=== PATIENT | female | born 1955 | race Caucasian/White ===

== ENCOUNTER 2018-05-25 11:43 | Emergency (ER) | payer OTHER ==
[~2018-05-25 11:43] MED LIST: AMMO385C4 TP; ASCO10007 PO; BACL20TA PO; DICL100G16 TP; ERGO400C PO; FLUC100IVB PO; FURO20TA4 PO; IBUP-2076 PO; INSLAN SQ; INSU10VI3 SQ; LEVO125T11 PO; METO-408 PO; MULT-1258 PO; NITR100C PO; ONDA4TAB10 PO; PARO40TA72 PO; POTA-81 PO; PREG50 PO
[2018-05-25 13:14] LABS: CREATININE 1.6 mg/dL (0.5-1.5); POTASSIUM 4.1 mmol/L (3.5-5.1)
[2018-05-25 13:15] LABS: APPEARANCE,URINE Cloudy (CLEAR); BILIRUBIN,URINE Negative (NEGATIVE); COLOR,URINE Yellow (YELLOW); GLUCOSE, URINE (UA) Negative (NEGATIVE); KETONES,URINE Negative (NEGATIVE); LEUKOCYTE ESTERASE ,URINE Large (NEGATIVE); NITRATE,URINE Negative (NEGATIVE); OCCULT BLOOD,URINE Moderate (NEGATIVE); PROTEIN,URINE POS 2+ (NEGATIVE)
[2018-05-25 13:19] LABS: ALBUMIN 2.9 g/dL (3.5-5.0); BILIRUBIN,TOTAL 0.3 mg/dL (0.2-1.0); TOTAL PROTEIN, SERUM 7.4 g/dL (6.0-8.3)
[2018-05-25 13:20] LABS: BASOPHILS % (AUTO) 0.2 % (0.0-5.0); EOSINOPHILS % (AUTO) 2.4 % (0.0-8.0); HEMATOCRIT 37.2 % (36-48); LYMPHOCYTES % (AUTO) 7.6 % (21.0-51.0); MEAN CORPUSCULAR HEMOGLOBIN 26.1 pg (27.0-33.0); MEAN CORPUSCULAR HGB CONC 31.9 g/dL (32.0-36.0); MEAN CORPUSCULAR VOLUME 81.9 fL (79-99); MONOCYTES % (AUTO) 11.2 % (3.0-13.0); NEUTROPHILS % (AUTO) 78.6 % (40.0-77.0); PLATELET COUNT (AUTO) 192 K/uL (130-400); RED BLOOD CELL COUNT(AUTO) 4.55 MIL/uL (4.00-5.50); RED CELL DISTRIBUTION WIDTH 17.1 % (11.0-15.5); WHITE BLOOD COUNT (AUTO) 8.3 K/uL (4.8-10.8)
[2018-05-25 13:26] LABS: BACTERIA,URINE Many /HPF (None Seen); SQUAMOUS EPITHELIAL CELL,UR Moderate /HPF (0-2); TRANSITIONAL EPI CELLS,URINE Few /HPF (None Seen)
[2018-05-25] MEDS ORDERED: SODIUM CHLORIDE 0.9% 50 ML IV ONE (16:16)
[2018-05-25] MEDS ORDERED: CEFTRIAXONE SODIUM 1 GM ONE ×2 (16:16→16:20)
[2018-05-25] MEDS ORDERED: LIDOCAINE HCL-MPF 1% 2ML VIAL ONE (16:21)
== END 2018-05-25 17:02 | disposition home or self-care (01) ==
LOC: EDH 11:43
DX: L03.115 Cellulitis of right lower limb (principal); N39.0 Urinary tract infection, site not specified; R60.0 Localized edema; F32.9 Major depressive disorder, single episode, unspecified; E11.9 Type 2 diabetes mellitus without complications; E03.9 Hypothyroidism, unspecified; Z98.890 Other specified postprocedural states; Z88.8 Allergy status to other drugs, medicaments and biological substances
CPT/HCPCS: 36415; 80053; 81001; 85025; 93971; 96372; 99285; J0696 ×2; J3490

== ENCOUNTER 2018-08-01 18:38 | Emergency (ER) | payer OTHER ==
[2018-08-01] MEDS ORDERED: ONDANSETRON HCL 4 MG/2 ML VIAL ONE (20:10)
[2018-08-01] MEDS ORDERED: SODIUM CHLORIDE 0.9% 1000ML 1,000 ML IV ONE (20:10)
[2018-08-01 20:12] LABS: BASOPHILS % (AUTO) 0.5 % (0.0-5.0); EOSINOPHILS % (AUTO) 1.1 % (0.0-8.0); LYMPHOCYTES % (AUTO) 7.7 % (21.0-51.0); MEAN CORPUSCULAR HEMOGLOBIN 24.8 pg (27.0-33.0); MEAN CORPUSCULAR HGB CONC 31.2 g/dL (32.0-36.0); MEAN CORPUSCULAR VOLUME 79.4 fL (79-99); MONOCYTES % (AUTO) 3.4 % (3.0-13.0); NEUTROPHILS % (AUTO) 87.3 % (40.0-77.0); PLATELET COUNT (AUTO) 242 K/uL (130-400); RED BLOOD CELL COUNT(AUTO) 4.91 MIL/uL (4.00-5.50); WHITE BLOOD COUNT (AUTO) 10.2 K/uL (4.8-10.8)
[2018-08-01 20:26] LABS: CREATININE 1.4 mg/dL (0.5-1.5); POTASSIUM 4.7 mmol/L (3.5-5.1)
[2018-08-01 20:34] LABS: ALBUMIN 3.3 g/dL (3.5-5.0); BILIRUBIN,TOTAL 0.3 mg/dL (0.2-1.0); TOTAL PROTEIN, SERUM 7.5 g/dL (6.0-8.3)
[2018-08-04] MEDS ORDERED: BACL20TA PO (02:18)
[2018-08-04] MEDS ORDERED: ASCO10007 PO (02:18)
[2018-08-04] MEDS ORDERED: PANT40TA25 PO (02:18)
[2018-08-04] MEDS ORDERED: LORA10TA7 PO (02:18)
[2018-08-04] MEDS ORDERED: ATOR40TA69 PO (02:18)
[2018-08-04] MEDS ORDERED: TICA90TA PO (02:18)
[2018-08-04] MEDS ORDERED: ASPI-1197 PO (02:18)
[2018-08-04] MEDS ORDERED: TRAM50TA4 PO (02:18)
[2018-08-04] MEDS ORDERED: MULT-1296 PO (02:18)
[2018-08-04] MEDS ORDERED: METO25TA3 PO (02:18)
[2018-08-04] MEDS ORDERED: CHOL500050 PO (02:18)
[2018-08-04] MEDS ORDERED: PARO40TA PO (02:18)
[2018-08-04] MEDS ORDERED: PREG50 PO (02:18)
== END 2018-08-01 23:23 | disposition home or self-care (01) ==
LOC: EDH 18:38
DX: K52.9 Noninfective gastroenteritis and colitis, unspecified (principal); M79.672 Pain in left foot; E11.9 Type 2 diabetes mellitus without complications; F32.9 Major depressive disorder, single episode, unspecified; E03.9 Hypothyroidism, unspecified; Z96.659 Presence of unspecified artificial knee joint; Z98.890 Other specified postprocedural states
CPT/HCPCS: 36415; 73630; 80053; 83690; 84484; 85025; 93005; 96361; 96374; 99284; J2405; J7030

== ENCOUNTER 2021-07-06 08:01 | Day surgery (SDC) | payer OTHER ==
[~2021-07-06 08:01] MED LIST changes: -AMMO385C4 TP; +ASCO100031 PO; -ASCO10007 PO; +ASPI-1197 PO; +ATOR40TA69 PO; +CHOL500050 PO; -DICL100G16 TP; -ERGO400C PO; -FLUC100IVB PO; -FURO20TA4 PO; -IBUP-2076 PO; +LORA10TA7 PO; -METO-408 PO; +METO25TA3 PO; -MULT-1258 PO; +MULT-1296 PO; -NITR100C PO; -ONDA4TAB10 PO; +PANT40TA54 PO; +PARO40TA PO; -PARO40TA72 PO; -POTA-81 PO; +TICA90TA PO; +TRAM50TA4 PO
[2021-07-06] MEDS ORDERED: LIDOCAINE HCL 1% MDV 50ML VIAL ONE (09:14)
[2021-07-06] MEDS ORDERED: HEPARIN 1,000 UNIT VIAL ONE (09:14)
[2021-07-06 10:45] VITALS: BP 129/59
== END 2021-07-06 11:25 ==
LOC: CLH 08:01 → DAH 08:01 → CLH 11:25
PROVIDERS: ATTEND Internal Medicine Critical Care Medicine
DX: Z45.2 Encounter for adjustment and management of vascular access device (principal); E11.40 Type 2 diabetes mellitus with diabetic neuropathy, unspecified; F32.9 Major depressive disorder, single episode, unspecified; F41.9 Anxiety disorder, unspecified; E03.9 Hypothyroidism, unspecified; I11.0 Hypertensive heart disease with heart failure; I50.9 Heart failure, unspecified; I48.0 Paroxysmal atrial fibrillation; I25.10 Atherosclerotic heart disease of native coronary artery without angina pectoris; Z88.5 Allergy status to narcotic agent; Z88.8 Allergy status to other drugs, medicaments and biological substances; Z79.01 Long term (current) use of anticoagulants; Z79.899 Other long term (current) drug therapy
CPT/HCPCS: 36558; 76937; 77001; 82948; A4215; A4216; A4221; A4223; A4606; A4663; C1751; C1894; J1644 ×2; J3490